=== PATIENT | male | born 1935 | race Caucasian/White ===

== ENCOUNTER → 2021-02-07 | Outpatient (CLI) | payer MEDICARE ==
--- NOTE | 2021-02-07 12:02 | RAD ---
Examination: CT of the chest abdomen pelvis without contrast HISTORY: History of abnormal weight loss COMPARISON: None available Technique: Axial CT images of the chest abdomen pelvis were performed without contrast. Coronal and s agittal reformats are performed Exposure: One or more of the following individualized dose reduction techniques were utilized for thi s examination: 1. Automated exposure control 2. Adjustment of the mA and/or kV according to patient size 3. Use of iterative reconstruction technique. FINDINGS: The visualized thyroid gland grossly appears unremarkable. Central airways are patent. Moderate aort ic atherosclerosis. The ascending aorta measures 3.8 cm in transverse dimension. Coronary artery calc ifications. Linear atelectasis right middle lobe, bibasilar lungs likely atelectasis or infiltrates. The evaluation of the solid organs is limited due to lack of IV contrast. The evaluation of bowel is limited due to lack of oral contrast. The visualized noncontrasted liver, spleen, adrenals grossly ap pears unremarkable. The gallbladder is mildly distended. The stomach is mildly distended. 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 The stomach is mildly distended. The small bowel is nondilated. Multiple sigmoid colon diverticulosis . The appendix is normal. Feces and gas noted in the colon. No evidence of intrarenal collecting system calculi or hydronephrosis. Left renal parapelvic cysts or prominent extrarenal pelvis. Moderate degenerative changes thoracic and lumbar spine.. IMPRESSION: 1. No acute intra-abdominal findings. 2. Multiple sigmoid colon diverticulosis. 3. Linear atelectasis right middle lobe, bibasilar lungs likely atelectasis or infiltrates. Electronically signed by: Ld Ayon MD (02/07/2021 11:59 AM) [id number]
== END ==
LOC: CT 11:02
PROVIDERS: ATTEND Family Medicine
DX: K57.30 Diverticulosis of large intestine without perforation or abscess without bleeding (principal); J98.11 Atelectasis; R63.4 Abnormal weight loss
CPT/HCPCS: 71250; 74176

== ENCOUNTER → 2021-07-28 | Outpatient (CLI) | payer MEDICARE ==
--- NOTE | 2021-07-28 20:15 | RAD ---
XR LUMBAR SPINE 2-3V, XR BILATERAL HIP (WITH OR WITHOUT PELVIS) LEFT 2 VIEWS 07/28/2021 5:55 PM INDICATION: Pain COMPARISON: None available. TECHNIQUE: 3 views of the lumbar spine, AP view the pelvis and 2 views the left hip are provided. FINDINGS/ IMPRESSION: Lumbar spine: There are 5 nonrib-bearing lumbar type vertebral bodies. Transverse processes are intac t. Sagittal alignment is maintained. Vertebral body heights are maintained. Acute fractures identifie d. Mild disc height loss at L4-L5. Mild facet arthropathy at L4-L5 and L5-S1. Mild anterior marginal osteophytosis. No acute fracture. Atherosclerotic changes of the abdominal aorta. Inferior endplate S chmorl's node identified at L5 without significant stricture Pelvis and left hip: There is no acute fracture or dislocation. Joint spaces are maintained. Bone mineralization is within normal limits. Regional soft tissues are within normal limits. There is no soft tissue gas or osseou s erosion. No radiopaque foreign body. Electronically signed by: Radha Moran MD (07/28/2021 8:12 PM) [facility]
== END ==
LOC: RAD 16:40
PROVIDERS: ATTEND Family Medicine
DX: M51.26 Other intervertebral disc displacement, lumbar region (principal); M48.8X7 Other specified spondylopathies, lumbosacral region; M51.46 Schmorl's nodes, lumbar region; I70.0 Atherosclerosis of aorta; M25.78 Osteophyte, vertebrae
CPT/HCPCS: 72100; 73502

== ENCOUNTER → 2021-09-09 | Outpatient (CLI) | payer MEDICARE ==
--- NOTE | 2021-09-09 09:42 | RAD ---
Left lower extremity arterial duplex ultrasound. 09/09/2021 Indication: Left foot pain and discoloration Comparison: None. Procedure: Arterial 2D and duplex images are obtained of the lower extremity arteries. Findings: Normal triphasic waveforms are present in the common femoral artery, superficial femoral ar stormy, popliteal artery, anterior tibial artery, posterior tibial artery and dorsalis pedis artery. No major arterial occlusion, aneurysm, or other focal of normality is seen. Peak systolic velocities: Left common femoral artery 130 cm/s Left superficial femoral artery 87 cm/s Left popliteal artery 91 cm/s Left posterior tibial artery 41 cm/s Left peroneal artery 43 cm/s Left anterior tibial artery 42 cm/s Left dorsalis pedis artery 45 cm/s IMPRESSION: No sonographic evidence of hemodynamically significant stenosis or other acute abnormalit y involving the major arteries of the left lower extremity Electronically signed by: Ramon Dempsey MD (09/09/2021 9:39 AM) [id number]
== END ==
LOC: US 08:48
PROVIDERS: ATTEND Family Medicine
DX: M79.672 Pain in left foot (principal)
CPT/HCPCS: 93926

== ENCOUNTER → 2021-09-15 | Day surgery (SDC) | payer MEDICARE ==
[~2021-09-15] MED LIST: BUPIVACAINE MPF 0.25% 10 ML VIAL. ONE; DEXAMETHASONE SOD PHOS 10 MG/ML VIAL. ONE; IOHEXOL 300 MG/ML 50 ML VIAL. ONE; LIDOCAINE 1% PF 30 ML VIAL. ONE
[2021-09-15 09:54] VITALS: BP 113/67
== END | disposition home or self-care (01) ==
LOC: SURG 08:14
PROVIDERS: ATTEND Anesthesiology
DX: M54.16 Radiculopathy, lumbar region (principal); I10 Essential (primary) hypertension; E78.5 Hyperlipidemia, unspecified; K21.9 Gastro-esophageal reflux disease without esophagitis; Z79.899 Other long term (current) drug therapy; Z79.82 Long term (current) use of aspirin; Z88.8 Allergy status to other drugs, medicaments and biological substances; Z98.890 Other specified postprocedural states
CPT/HCPCS: 64483; 64484; A4209; A4657; A4930; J1100; J3490; Q9967